=== PATIENT | female | born 1955 | race Hispanic/Latino ===

== ENCOUNTER 2018-06-06 11:41 | Emergency (ER) | payer OTHER ==
[~2018-06-06] VITALS: Ht 149.9 cm; Wt 78.9 kg
[2018-06-06] MEDS ORDERED: SODIUM CHLORIDE 0.9% 1000ML 1,000 ML IV SCH (12:30)
[2018-06-06 13:07] LABS: BASOPHILS % 0.5 % (0.0-1.0); EOSINOPHILS % 0.2 % (0.0-6.0); HEMOGLOBIN 13.7 g/dL (12.0-16.0); LYMPHOCYTES # (AUTO) 1.8 (1.0-3.2); LYMPHOCYTES % 29.8 % (18.0-39.1); MEAN CORPUSCULAR HEMOGLOBIN 31.9 pg (28-32); MEAN CORPUSCULAR HGB CONC 34.3 g/dL (31-35); MEAN CORPUSCULAR VOLUME 93.2 fL (81-99); MONOCYTES # (AUTO) 0.4 (0.2-0.8); MONOCYTES % 6.1 % (4.4-11.3); NEUTROPHILS # (AUTO) 3.8 (2.1-6.9); NEUTROPHILS % 62.9 % (38.7-80.0); PLATELET COUNT 218 x10e3/uL (140-360); RED BLOOD COUNT 4.29 x10e6/uL (3.6-5.1); RED CELL DISTRIBUTION WIDTH 12.4 % (11.7-14.4)
[2018-06-06 13:22] LABS: BILIRUBIN,URINE NEGATIVE (NEGATIVE); CLARITY,URINE CLEAR (CLEAR); COLOR,URINE YELLOW (YELLOW); KETONES,URINE NEGATIVE (NEGATIVE); LEUKOCYTE ESTERASE ,URINE NEGATIVE (NEGATIVE); NITRITE,URINE NEGATIVE (NEGATIVE); PROTEIN,URINE DIPSTICK NEGATIVE (NEGATIVE); URINE UROBILINOGEN 0.2 mg/dL (0.2 - 1)
[2018-06-06 13:30] LABS: BACTERIA,URINE FEW /HPF; EPITHELIAL CELLS,URINE FEW /LPF; RENAL EPITHELIAL CELLS,URINE RARE
[2018-06-06 13:38] LABS: ALANINE AMINOTRANSFERASE 23 IU/L (0-55); ALBUMIN 4.2 g/dL (3.5-5.0); ALBUMIN/GLOBULIN RATIO 1.6 (0.8-2.0); ALKALINE PHOSPHATASE 51 IU/L (40-150); AMYLASE 62 U/L (25-125); ANION GAP 12.6 mmol/L (8-16); BLOOD UREA NITROGEN 21 mg/dL (7-26); BUN/CREATININE RATIO 29 (6-25); CALCIUM 9.8 mg/dL (8.4-10.2); CARBON DIOXIDE 23 mmol/L (22-29); CHLORIDE 104 mmol/L (98-107); CREATININE, SERUM 0.72 mg/dL (0.57-1.11); EST GLOMERULAR FILTRATION RATE > 60 ML/MIN (60-); GLUCOSE 149 mg/dL (74-118); LIPASE 44 U/L (8-78); POTASSIUM 3.6 mmol/L (3.5-5.1); SODIUM 136 mmol/L (136-145)
--- NOTE | 2018-06-06 15:28 | Diagnostic Imaging Report ---
EXAMINATION: CT of the abdomen and pelvis with contrast. TECHNIQUE: Helical CT images of the abdomen and pelvis were performed from the lung bases to the lesser trochanters after the intravenous administration of 150 cc of Isovue 300 and the oral administration of none. Coronal and sagittal reformatted images were obtained.Dose modulation, iterative reconstruction, and/or weight based adjustment of the mA/kV was utilized to reduce the radiation dose to as low as reasonably achievable. COMPARISON: None. CLINICAL HISTORY:Abdominal pain DISCUSSION: ABDOMEN/PELVIS: LOWER THORAX:Unremarkable. HEPATOBILIARY: Hepatic steatosis. No focal lesion. No intra-or extrahepatic biliary ductal dilation. The gallbladder is normal. SPLEEN: No splenomegaly. PANCREAS: No focal masses or ductal dilatation. ADRENALS: 1.2 cm right adrenal adenoma. KIDNEYS/URETERS: No solid mass lesions. Bilateral peripelvic cysts. PELVIC ORGANS/BLADDER: The bladder is normal. PERITONEUM/RETROPERITONEUM: No free air or fluid. LYMPH NODES: No intra-abdominal, retroperitoneal, pelvic or inguinal lymphadenopathy. VESSELS: Mild vascular calcifications. GI TRACT: No distention or wall thickening. Scattered diverticulosis. BONES AND SOFT TISSUE: No bony destructive lesions. No soft tissue abnormalities. IMPRESSION: No acute CT finding. Signed by: Dr. Homer Beckham M.D. on 06/06/2018 3:24 PM
[2018-06-06 16:59] VITALS: BP 177/98
[2018-06-06] MEDS ORDERED: SODIUM CHLORIDE 0.9% 50ML 50 ML ONE (19:14)
[2018-06-06] MEDS ORDERED: IOPAMIDOL 370 MG/ML 200 ML INFUS..BTL INJ ONE (19:14)
== END 2018-06-06 17:07 | disposition home or self-care (01) ==
LOC: ER 11:41
DX: R10.84 Generalized abdominal pain (principal); I10 Essential (primary) hypertension; E11.9 Type 2 diabetes mellitus without complications; E78.5 Hyperlipidemia, unspecified
CPT/HCPCS: 36415; 74177; 80053; 81001; 82150; 83690; 85025; 99284; J7030; Q9967

== ENCOUNTER 2019-07-29 20:03 | Emergency (ER) | payer OTHER ==
--- OUTSIDE RECORDS SUMMARY | 2019-07-29 20:05 | XMS REPORT ---
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 Allergies, Adverse Reactions, Alerts Allergy Name Allergy Type Status Severity Reaction(s) Onset Date Inactive Date Treating Clinician Comments Angiotensin-converting enzyme inhibitor Allergy to Substance Active Unknown 2018-06-06 00:00:00 Penicillin Allergy to Substance Active Unknown 2018-06-06 00:00:00 Simvastatin Allergy to Substance Active Unknown 2018-06-06 00:00:00 Atorvastatin Allergy to Substance Active Unknown 2018-06-06 00:00:00 Ezetimibe Allergy to Substance Active Unknown 2018-06-06 00:00:00 Medications This patient has no known medications. Procedures and Interventions Procedure Date / Time Performed Performing Clinician Computed tomography of abdomen and pelvis with contrast 2018-06-06 00:00:00 BLANCA MARCH Encounters Start Date/Time End Date/Time Encounter Type Admission Type Attending Clinicians Care Facility Care Department Encounter ID 2018-06-06 11:41:00 2018-06-06 17:07:00 Departed Emergency Room 1 JEANETTE ARIZA [facility] [id number] Results Test Description Test Time Test Comments Text Results Atomic Results Result Comments CT ABDOMEN/PELVIS W 2018-06-06 15:20:00 [place] [address] Patient Name: SHREYA MCCLOUD MR #: [id number] : 1955 Age/Sex: 62/F Req #: [id number] Adm Physician: Ordered by: BLANCA MARCH [employer] Report #: [id number] Location: ER Room/Bed: Procedure: [id number] CT/CT ABDOMEN/PELVIS W Exam Date: 06/06/18 Exam Time: 1308 REPORT STATUS: Signed EXAMINATION: CT of the abdomen and pelvis with contras t. TECHNIQUE: Helical CT images of the abdomen and pelvis were performed from the lung bases to the lesser trochanters after the intravenous administration of 150 cc of Isovue 300 and the oral administration of none. Coronal and sagittal reformatted images were obtained.Dose modulation, iterative reconstruction, and/or weight based adjustment of the mA/kV was utilized to reduce the radiation dose to as low as reasonably achievable. COMPARISON: None. CLINICAL HISTORY:Abdominal pain DISCUSSION: ABDOMEN/PELVIS: LOWER THORAX:Unremarkable. HEPATOBILIARY: Hepatic steatosis. No focal lesion. No intra-or extrahepatic biliary ductal dilation. The gallbladder is normal. SPLEEN: No splenomegaly. PANCREAS: No focal masses or ductal dilatation. ADRENALS: 1.2 cm right adrenal adenoma. KIDNEYS/URETERS: No solid mass lesions. Bilateral peripelvic cysts. PELVIC ORGANS/BLADDER: The bladder is normal. PERITONEUM/RETROPERITONEUM: No free air or fluid. LYMPH NODES: No intra-abdominal, retroperitoneal, pelvic or inguinal lymphadenopathy. VESSELS: Mild vascular calcifications. GI TRACT: No distention or wall thickening. Scattered diverticulosis. BONES AND SOFT TISSUE: No bony destructive lesions. No soft tissue abnormalities. IMPRESSION: No acute CT finding. Signed by: Dr. Charles Perea M.D. on 06/06/2018 3:24 PM Dictated By: CHARLES PEREA MD 23 Transcribed By: PILO on 06/06/184 COPY TO: BLANCA MARCH NP Sodium Level 2018-06-06 13:39:00 Sodium Level (test iygj=8404-4) 136 136-145 Potassium Ucnhl7967-70-46 13:39:00* Test Item Value Reference Range Comments Potassium Level (test ojcj=9496-0) 3.6 3.5-5.1 Chloride Swvmy8166-39-75 13:39:00* Test Item Value Reference Range Comments Chloride Level (test tzsu=9250-0) 104 98-107 Carbon Dioxide Dxlgj6934-07-57 13:39:00* Test Item Value Reference Range Comments Carbon Dioxide Level (test vlqh=9690-9) 23 22-29 Anion Ilt6336-31-32 13:39:00* Test Item Value Reference Range Comments Anion Gap (test cqzs=53856-6) 12.6 8-16 Blood Urea Jqtmsowi2303-38-67 13:39:00* Test Item Value Reference Range Comments Blood Urea Nitrogen (test vahe=0425-0) 21 7-26 Wjamdayvkj2255-68-17 13:39:00* Test Item Value Reference Range Comments Creatinine (test poic=5993-2) 0.72 0.57-1.11 BUN/Creatinine Uniwc7623-79-13 13:39:00* Test Item Value Reference Range Comments BUN/Creatinine Ratio (test hdkr=2382-3) 29 6-25 Estimat Glomerular Filtration Pvya9446-10-12 13:39:00* Test Item Value Reference Range Comments Estimat Glomerular Filtration Rate (test kvnp=269423845) > 60 >60 Ranges were taken from the National Kidney Disease Education Program and the Perri ional [employer] literature.Reference ranges:60 or greater: Zurdgw16-10 ( for 3 consecutive months): Chronic kidney disease 15 or less: Kidney failure Glucose Fahaq3347-08-70 13:39:00* Test Item Value Reference Range Comments Glucose Level (test limc=XNA1648) 149 74-118 Calcium Ileoh0553-85-69 13:39:00* Test Item Value Reference Range Comments Calcium Level (test wivd=55790-6) 9.8 8.4-10.2 Total Hbjutblfl2631-88-72 13:39:00* Test Item Value Reference Range Comments Total Bilirubin (test tyon=1044-7) 0.5 0.2-1.2 Aspartate Amino Transf (AST/SGOT)2018-06-06 13:39:00* Test Item Value Reference Range Comments Aspartate Amino Transf (AST/SGOT) (test code=Aspartate Amino Transf (AST/SGOT)) 25 5-34 Alanine Aminotransferase (ALT/SGPT)2018-06-06 13:39:00* Test Item Value Reference Range Comments Alanine Aminotransferase (ALT/SGPT) (test qqzz=5163-8) 23 0-55 Total Dsjljgm5680-26-86 13:39:00* Test Item Value Reference Range Comments Total Protein (test ksmp=8358-8) 6.9 6.5-8.1 Doxhoxx6991-51-27 13:39:00* Test Item Value Reference Range Comments Albumin (test wvtf=7180-9) 4.2 3.5-5.0 Boehpgzp2983-77-30 13:39:00* Test Item Value Reference Range Comments Globulin (test noig=89344-7) 2.7 2.3-3.5 Albumin/Globulin Jwzoe6495-85-24 13:39:00* Test Item Value Reference Range Comments Albumin/Globulin Ratio (test ddgg=1708-3) 1.6 0.8-2.0 Alkaline Lowrghvqvgj6586-43-35 13:39:00* Test Item Value Reference Range Comments Alkaline Phosphatase (test pxrk=9930-8) 51 40-150 Amylase Ltpto3453-85-75 13:39:00* Test Item Value Reference Range Comments Amylase Level (test olfi=5895-8) 62 25-125 Sykpjp7778-87-39 13:39:00* Test Item Value Reference Range Comments Lipase (test mnsx=3318-0) 44 8-78 Urine GUS9457-65-89 13:30:00* Test Item Value Reference Range Comments Urine WBC (test vtqt=2832-6) NONE 0-5 Urine NBM8995-77-16 13:30:00* Test Item Value Reference Range Comments Urine RBC (test skcn=60582-6) NONE 0-5 Urine Goymvmfn5180-73-86 13:30:00* Test Item Value Reference Range Comments Urine Bacteria (test pcvt=05436-7) FEW NONE Urine Epithelial Mygtf8678-26-97 13:30:00* Test Item Value Reference Range Comments Urine Epithelial Cells (test dmbi=44358-0) FEW NONE Urine Renal Epithelial Sujme3321-15-21 13:30:00* Test Item Value Reference Range Comments Urine Renal Epithelial Cells (test uqtb=42980-7) RARE NONE Urine Lbxpu9804-11-36 13:22:00* Test Item Value Reference Range Comments Urine Color (test fjlx=1618-3) YELLOW YELLOW Urine Rhcdhbz3325-23-59 13:22:00* Test Item Value Reference Range Comments Urine Clarity (test lwfi=63640-2) CLEAR CLEAR Urine Specific Lezzdul6132-21-21 13:22:00* Test Item Value Reference Range Comments Urine Specific Celestine (test lprz=9461-7) 1.005 1.010-1.025 Urine kT3897-29-14 13:22:00* Test Item Value Reference Range Comments Urine pH (test wkfb=33325-6) 7 5-7 Urine Leukocyte Ymcvlted4681-47-76 13:22:00* Test Item Value Reference Range Comments Urine Leukocyte Esterase (test fthk=0629-0) NEGATIVE NEGATIVE Urine Rhlsiyc1258-20-61 13:22:00* Test Item Value Reference Range Comments Urine Nitrite (test gplm=61434-5) NEGATIVE NEGATIVE Urine Wumllow3729-29-37 13:22:00* Test Item Value Reference Range Comments Urine Protein (test qthe=2532-7) NEGATIVE NEGATIVE Urine Glucose (UA)2018-06-06 13:22:00* Test Item Value Reference Range Comments Urine Glucose (UA) (test papi=8774-4) NEGATIVE NEGATIVE Urine Vvnalqu6882-65-14 13:22:00* Test Item Value Reference Range Comments Urine Ketones (test gjsl=39560-2) NEGATIVE NEGATIVE Urine Ghgfrtuwyrch9306-69-55 13:22:00* Test Item Value Reference Range Comments Urine Urobilinogen (test kkfr=45125-3) 0.2 0.2-1 Urine Kcsgtmewl7213-14-58 13:22:00* Test Item Value Reference Range Comments Urine Bilirubin (test bufl=1266-3) NEGATIVE NEGATIVE Urine Bbxua9051-69-68 13:22:00* Test Item Value Reference Range Comments Urine Blood (test fcnv=18203-2) NEGATIVE NEGATIVE White Blood Dnvzi2226-42-62 13:17:00* Test Item Value Reference Range Comments White Blood Count (test ynfa=9473-3) 6.05 4.8-10.8 Red Blood Igzzb3694-49-01 13:17:00* Test Item Value Reference Range Comments Red Blood Count (test nnib=806-0) 4.29 3.6-5.1 Druiqlklwm6959-87-05 13:17:00* Test Item Value Reference Range Comments Hemoglobin (test povw=89475-4) 13.7 12.0-16.0 Ngrpyvxrxo6993-72-83 13:17:00* Test Item Value Reference Range Comments Hematocrit (test uxir=9405-3) 40.0 34.2-44.1 Mean Corpuscular Avehck4523-37-36 13:17:00* Test Item Value Reference Range Comments Mean Corpuscular Volume (test bsvh=751-4) 93.2 81-99 Mean Corpuscular Yeqfmsuppk8715-02-32 13:17:00* Test Item Value Reference Range Comments Mean Corpuscular Hemoglobin (test twxo=316-2) 31.9 28-32 Mean Corpuscular Hemoglobin Imisxiy3092-67-71 13:17:00* Test Item Value Reference Range Comments Mean Corpuscular Hemoglobin Concent (test fsvg=121-2) 34.3 31-35 Red Cell Distribution Cyeqg8510-06-37 13:17:00* Test Item Value Reference Range Comments Red Cell Distribution Width (test xrur=67057-1) 12.4 11.7-14.4 Platelet Fefkx4134-26-45 13:17:00* Test Item Value Reference Range Comments Platelet Count (test ujgq=611-3) 218 140-360 Neutrophils (%) (Auto)2018-06-06 13:17:00* Test Item Value Reference Range Comments Neutrophils (%) (Auto) (test orns=67437-9) 62.9 38.7-80.0 Lymphocytes (%) (Auto)2018-06-06 13:17:00* Test Item Value Reference Range Comments Lymphocytes (%) (Auto) (test rzmu=287-4) 29.8 18.0-39.1 Monocytes (%) (Auto)2018-06-06 13:17:00* Test Item Value Reference Range Comments Monocytes (%) (Auto) (test iagb=4643-1) 6.1 4.4-11.3 Eosinophils (%) (Auto)2018-06-06 13:17:00* Test Item Value Reference Range Comments Eosinophils (%) (Auto) (test xgqk=016-5) 0.2 0.0-6.0 Basophils (%) (Auto)2018-06-06 13:17:00* Test Item Value Reference Range Comments Basophils (%) (Auto) (test dwwl=590-1) 0.5 0.0-1.0 IM GRANULOCYTES %2018-06-06 13:17:00* Test Item Value Reference Range Comments IM GRANULOCYTES % (test code=IM GRANULOCYTES %) 0.5 0.0-1.0 Neutrophils # (Auto)2018-06-06 13:17:00* Test Item Value Reference Range Comments Neutrophils # (Auto) (test eypm=853-7) 3.8 2.1-6.9 Lymphocytes # (Auto)2018-06-06 13:17:00* Test Item Value Reference Range Comments Lymphocytes # (Auto) (test qwfp=32122-9) 1.8 1.0-3.2 Monocytes # (Auto)2018-06-06 13:17:00* Test Item Value Reference Range Comments Monocytes # (Auto) (test rnvd=479-6) 0.4 0.2-0.8 Eosinophils # (Auto)2018-06-06 13:17:00* Test Item Value Reference Range Comments Eosinophils # (Auto) (test bfut=547-3) 0.0 0.0-0.4 Basophils # (Auto)2018-06-06 13:17:00* Test Item Value Reference Range Comments Basophils # (Auto) (test lptt=739-7) 0.0 0.0-0.1 Absolute Immature Granulocyte (plzf7355-62-95 13:17:00* Test Item Value Reference Range Comments Absolute Immature Granulocyte (auto (test code=Absolute Immature Granulocyte (auto) 0.03 0-0.1
== END 2019-07-29 20:40 | disposition left against medical advice (07) ==
LOC: FSED 20:03
DX: R69 Illness, unspecified (principal)

== ENCOUNTER 2022-08-26 13:58 | Emergency (ER) | payer MEDICARE, OTHER ==
[~2022-08-26] VITALS: Ht 149.9 cm; Wt 78.9 kg
[2022-08-26 14:16] VITALS: O2SAT 100
[2022-08-26 14:51] LABS: BASOPHILS # (AUTO) 0.1 (0.0-0.1); BASOPHILS % 0.8 % (0.0-1.0); EOSINOPHILS # (AUTO) 0.1 (0.0-0.4); EOSINOPHILS % 1.3 % (0.0-6.0); HEMATOCRIT 43.6 % (34.2-44.1); HEMOGLOBIN 14.5 g/dL (12.0-16.0); LYMPHOCYTES # (AUTO) 1.6 (1.0-3.2); LYMPHOCYTES % 22.8 % (18.0-39.1); MEAN CORPUSCULAR HEMOGLOBIN 31.9 pg (28-32); MEAN CORPUSCULAR HGB CONC 33.3 g/dL (31-35); MONOCYTES # (AUTO) 0.5 (0.2-0.8); MONOCYTES % 6.7 % (4.4-11.3); NEUTROPHILS # (AUTO) 4.8 (2.1-6.9); NEUTROPHILS % 67.3 % (38.7-80.0); PLATELET COUNT 211 x10e3/uL (140-360); RED BLOOD COUNT 4.54 x10e6/uL (3.6-5.1); RED CELL DISTRIBUTION WIDTH 12.6 % (11.7-14.4)
[2022-08-26 14:52] LABS: CLARITY,URINE SL CLOUDY (CLEAR); COLOR,URINE YELLOW (YELLOW); KETONES,URINE NEGATIVE (NEGATIVE); LEUKOCYTE ESTERASE ,URINE NEGATIVE (NEGATIVE); NITRITE,URINE NEGATIVE (NEGATIVE); PROTEIN,URINE DIPSTICK NEGATIVE (NEGATIVE); URINE UROBILINOGEN 0.2 mg/dL (0.2 - 1)
[2022-08-26 15:02] LABS: RBC,URINE 0-5 /HPF (0-5); WBC,URINE (MAN) 0-5 /HPF (0-5)
[2022-08-26 15:03] LABS: BACTERIA,URINE MODERATE /HPF; EPITHELIAL CELLS,URINE FEW /LPF
[2022-08-26 15:07] LABS: ALBUMIN/GLOBULIN RATIO 1.4 (0.8-2.0); ANION GAP 14.7 mmol/L (8-16); CALCIUM 9.2 mg/dL (8.4-10.2); CREATININE, SERUM 0.81 mg/dL (0.57-1.11); POTASSIUM 3.7 mmol/L (3.5-5.1)
[2022-08-26 17:12] VITALS: BP 132/68; PULSE 88; RESP 16
== END 2022-08-26 16:40 | disposition home or self-care (01) ==
LOC: ER 14:03
DX: R42 Dizziness and giddiness (principal); I10 Essential (primary) hypertension; E11.65 Type 2 diabetes mellitus with hyperglycemia; E78.5 Hyperlipidemia, unspecified
CPT/HCPCS: 36415; 70450; 71045; 80053; 81001; 84484; 85025; 93005; 99284